=== PATIENT | female | born 1935 | race Caucasian/White ===

== ENCOUNTER 2018-06-03 03:38 | Emergency (ER) | payer MEDICARE, BC ==
[~2018-06-03] VITALS: Ht 170.2 cm; Wt 75.7 kg
[2018-06-03 03:59] VITALS: Ht 170.2 cm; Wt 75.7 kg
[2018-06-03] MEDS ORDERED: PRINIVIL20 MG PO (04:00)
[2018-06-03] MEDS ORDERED: BONE MED (04:01)
[2018-06-03 04:55] LABS: APPEARANCE CLEAR (CLEAR); BILIRUBIN NEGATIVE (NEGATIVE); COLOR YELLOW (YELLOW); GLUCOSE NEGATIVE (NEGATIVE); KETONE NEGATIVE (NEGATIVE); NITRITE NEGATIVE (NEGATIVE); PROTEIN NEGATIVE (NEGATIVE); UROBILINOGEN NORMAL (NORMAL)
[2018-06-03 05:16] LABS: BASOPHILS 0.1 % (0-2); EOSINOPHILS 0.7 % (0-7); HEMATOCRIT 39.6 % (36.0-48.0); HEMOGLOBIN 13.3 g/dL (12-16); IMMATURE GRANULOCYTES 0.1 % (0-5); LYMPHOCYTES 25.9 % (15-50); MCH 30.4 pg (26.0-34.0); MCHC 33.6 g/dL (31.0-37.0); MCV 90.6 fL (80.0-100.0); MEAN PLATELET VOLUME 9.6 fL (7.4-10.4); MONOCYTES 6.4 % (2-11); NEUTROPHILS 66.8 % (40-80); PLATELET COUNT 222 10x3/uL (130-400); RBC 4.37 10x6/uL (4.00-5.40); RDW 14.1 % (11.5-14.5); WBC 7.2 10x3/uL (4.8-10.8)
[2018-06-03 05:38] LABS: ALBUMIN 3.7 g/dL (3.4-5.0); ANION GAP 10.6 mmol/L (8-16); BILIRUBIN - TOTAL 0.67 mg/dL (0.2-1.3); CALCIUM 9.9 mg/dL (8.5-10.1); POTASSIUM - SERUM 4.6 mmol/L (3.5-5.1); PROTEIN - SERUM 6.9 g/dL (6.4-8.2)
[2018-06-03] MEDS ORDERED: MEDROL DOSE PACK4 MG PO (06:00)
[2018-06-03] MEDS ORDERED: CYCLOBENZAPRINE10 MG PO (06:00)
[2018-06-03 06:24] VITALS: BP 168/91
== END 2018-06-03 06:10 | disposition home or self-care (01) ==
LOC: D.ER 03:38
PROVIDERS: Family Medicine
DX: M25.552 Pain in left hip (principal); M25.551 Pain in right hip; M25.562 Pain in left knee; M25.561 Pain in right knee; M16.0 Bilateral primary osteoarthritis of hip; I10 Essential (primary) hypertension